=== PATIENT | female | born 1960 | race American Indian/Alaskan Native ===

== ENCOUNTER 2017-08-13 15:29 | Emergency (ER) | payer OTHER ==
[2017-08-13] MEDS ORDERED: TORADOL IM ONE (17:37)
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
[2017-08-13 17:43] VITALS: BP 145/85
[2017-08-13] MEDS ORDERED: TORADOL IV ONE (18:04)
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
== END 2017-08-13 19:35 | disposition home or self-care (01) ==
LOC: ED 15:29
DX: M54.5 Low back pain (principal); V49.49XA Driver injured in collision with other motor vehicles in traffic accident, initial encounter; W22.12XA Striking against or struck by front passenger side automobile airbag, initial encounter; Y93.89 Activity, other specified; Y92.89 Other specified places as the place of occurrence of the external cause; Y99.8 Other external cause status; Z88.8 Allergy status to other drugs, medicaments and biological substances
CPT/HCPCS: 72100; 96374; 99283; J1885